=== PATIENT | female | born 1950 | race Caucasian/White ===

== ENCOUNTER 2021-10-28 11:04 | Day surgery (SDC) | payer MEDICARE ==
[~2021-10-28] VITALS: Ht 160 cm; Wt 93.0 kg
[~2021-10-28 11:04] MED LIST: ASPI81CH PO; BISA5EC PO; CHOL10002 PO; Cymbalta20 MG PO; Hair, Skin & N1 EACH PO; INSULANPEN; INVOKANA300 MG PO; ISOMON20 PO; LOSA25 PO; MAGOXI400 PO; METF500C PO; Synthroid112 MCG PO; TIZANIDINE HCL4 MG PO; Tylenol325 MG PO
[2021-10-28] MEDS ORDERED: HUMALOG KW100 UNIT/1 SC (11:39)
--- NOTE | 2021-10-28 12:09 | NUR ---
10/28/21 1209 Vesta Longoria 1ST ATTEMPT IN LH INFILTRATED, STARTED BY MATI LINO 2ND ATTEMPT IN LFA INFILTRATED, STARTED BY MATI GARCIA 3RD ATTEMPT IN LFA INFILTRATED, STARTED BY MATI LINO 4TH ATTEMPT IN LH SUCCESSFUL, STARTED BY LORRIE BACA
--- NOTE | 2021-10-28 13:00 | NUR ---
10/28/21 Armando Mccollum BUPIVACAINE 0.5% 30 MLS MIXED W/ EPI 0.15ML PER ORDER TO CONSITITUTE BUPIVACAINE 0.5% 1:200,000 FOR INJECTION AT OPSITE BY DR SRINIVASAN.
--- NOTE | 2021-10-28 14:36 | NUR ---
10/28/21 8077 Gabbie Otto RECEIVED REPORT FROM [email or web address]. PATIENT IN BED WITH SPLINT ON LEFT FOOT, IN PLACE AND DRYING. PATIENT TELLS ME SHE THINKS HER BLOOD SUGAR MIGHT BE LOW BECAUSE SHE FEELS SHAKY. SHE HAS HER GLUCOSE MONITOR AND CHECKS HERSELF AND IS CURRENTLY 89. SHE DOES REQUEST SOME JUICE AND THIS WAS GIVEN TO HER. SHE C/O BEING DIZZY. GLASSES ARE GIVEN TO HER AND STATES THIS MIGHT BE HELPING A LITTLE. PATIENTS SPOUSE AT BEDSIDE AND ASSISTING PATIENT WITH HER NEEDS AT THIS TIME.
== END 2021-10-28 15:00 | disposition home or self-care (01) ==
LOC: ORSCSDS 11:04
PROVIDERS: Podiatrist Foot & Ankle Surgery
PROC: 0SGL04Z Fusion of Left Tarsometatarsal Joint with Internal Fixation Device, Open Approach (ICD-10-PCS; principal; 2021-10-28 12:30)
DX: M21.612 Bunion of left foot (principal); I10 Essential (primary) hypertension; I25.10 Atherosclerotic heart disease of native coronary artery without angina pectoris; E11.9 Type 2 diabetes mellitus without complications; E03.9 Hypothyroidism, unspecified; Z79.4 Long term (current) use of insulin; Z79.82 Long term (current) use of aspirin; Z79.899 Other long term (current) drug therapy; I48.91 Unspecified atrial fibrillation
CPT/HCPCS: 82947; C1776; J0171; J0690; J1100; J2250; J2405; J2704; J3010; J7120

== ENCOUNTER 2022-04-20 09:19 | Day surgery (SDC) | payer MEDICARE ==
[~2022-04-20] VITALS: Ht 162.6 cm; Wt 96.1 kg
[~2022-04-20 09:19] MED LIST changes: +HUMALOG KW100 UNIT/1 SC
[2022-04-20] MEDS ORDERED: LOSA25 PO (10:04)
[2022-04-20] MEDS ORDERED: HYDCHL25 PO (10:07)
[2022-04-20] MEDS ORDERED: TRAZ50 PO (10:09)
--- NOTE | 2022-04-20 11:13 | NUR ---
04/20/22 1113 Armando Hung 1 MG EPI ADDED TO EACH OF THE FIRST 3 BAGS OF LR PER ORDER FOR IRRIGATION AT [facility].
--- NOTE | 2022-04-20 12:57 | NUR ---
04/20/22 Ja Stanford BP 211/112 @ 1250 - GIVING 5MG LABETELOL IV PUSH- DILUTED IN SALINE FLUSH AND PUSHED OVER 2 MINTUES.
== END 2022-04-20 14:35 | disposition home or self-care (01) ==
LOC: ORSCSDS 09:19
PROVIDERS: Orthopaedic Surgery
PROC: 0LM14ZZ Reattachment of Right Shoulder Tendon, Percutaneous Endoscopic Approach (ICD-10-PCS; principal; 2022-04-20 11:00)
PROC: 0RBJ4ZZ Excision of Right Shoulder Joint, Percutaneous Endoscopic Approach (ICD-10-PCS; principal; 2022-04-20 11:00)
PROC: 0LS34ZZ Reposition Right Upper Arm Tendon, Percutaneous Endoscopic Approach (ICD-10-PCS; principal; 2022-04-20 11:00)
PROC: 0RNJ4ZZ Release Right Shoulder Joint, Percutaneous Endoscopic Approach (ICD-10-PCS; principal; 2022-04-20 11:00)
DX: S46.811A Strain of other muscles, fascia and tendons at shoulder and upper arm level, right arm, initial encounter (principal); M75.121 Complete rotator cuff tear or rupture of right shoulder, not specified as traumatic; M75.41 Impingement syndrome of right shoulder; E11.9 Type 2 diabetes mellitus without complications; M79.7 Fibromyalgia; F32.A Depression, unspecified; I73.9 Peripheral vascular disease, unspecified; I25.10 Atherosclerotic heart disease of native coronary artery without angina pectoris; I10 Essential (primary) hypertension; E03.9 Hypothyroidism, unspecified; Z79.82 Long term (current) use of aspirin; Z79.4 Long term (current) use of insulin; Z79.899 Other long term (current) drug therapy; W19.XXXA Unspecified fall, initial encounter
CPT/HCPCS: 82947; A9270; C1713; J0171; J0690; J1100; J2250; J2370; J2405; J2704; J3010; J7120

== ENCOUNTER → 2022-05-16 | Outpatient (CLI) | payer MEDICARE ==
[~2022-05-16] MED LIST changes: +HYDCHL25 PO; +TRAZ50 PO
== END | disposition home or self-care (01) ==
LOC: LAB SHORT 09:45 → LAB 09:45
DX: E11.3293 Type 2 diabetes mellitus with mild nonproliferative diabetic retinopathy without macular edema, bilateral (principal); E11.40 Type 2 diabetes mellitus with diabetic neuropathy, unspecified; Z79.4 Long term (current) use of insulin
CPT/HCPCS: 82043

== ENCOUNTER → 2025-06-12 | Outpatient (CLI) | payer OTHER ==
[~2025-06-12] MED LIST changes: +AMLO5 PO; +BASAGLAR K100 UNIT/1 SC; +LOSA50 PO; +NOVOLOG FL100 UNIT/2; +TIZA4 PO; -TIZANIDINE HCL4 MG PO
[2025-06-12 19:02] LABS: Ferritin, Serum 24.0 ng/mL (8-252); Thyroid Stimulating Hormone 1.64 uIU/mL (0.360-4.800); Total Iron Binding Capacity 414.0 ug/dL (250-450)
[2025-06-12 19:11] LABS: Anion Gap 10.0 mmol/L (3-11); Blood Urea Nitrogen 19.0 mg/dL (8-24); CO2, Blood 26.0 mmol/L (21-32); Calcium, Blood 9.3 mg/dL (8.5-10.1); Chloride, Blood 102.0 mmol/L (98-108); Creatinine, Blood 0.81 mg/dL (0.40-1.00); Glucose, Blood 143.0 mg/dL (70-99); Potassium, Blood 4.2 mmol/L (3.5-5.5); Sodium, Blood 134.0 mmol/L (136-145)
[2025-06-12 20:08] LABS: Creatinine, Urine Random 38.7 mg/dL (27.00-270.00); Microalb/Creat Ratio UR, Rand 45.995 mg/g (0.000-30.000); Microalbumin, Random Urine 17.8 mg/L (0.000-20.000)
== END ==
LOC: LAB SHORT 17:25 → LAB 17:25
PROVIDERS: Nurse Practitioner Family
DX: E11.40 Type 2 diabetes mellitus with diabetic neuropathy, unspecified (principal); E03.9 Hypothyroidism, unspecified; E61.1 Iron deficiency; Z79.899 Other long term (current) drug therapy
CPT/HCPCS: 80048; 82043; 82570; 82607; 82728; 82746; 83036; 83540; 83550; 84443